=== PATIENT | female | born 1980 | race Two or more races ===

== ENCOUNTER 2018-09-13 13:30 | Emergency (ER) | payer OTHER ==
[~2018-09-13] VITALS: Ht 160 cm; Wt 62.1 kg
[2018-09-13 16:20] VITALS: BP 112/53
[2018-09-13] MEDS ORDERED: KETOROLAC TROMETH 60MG/2ML VIAL IM ONE (16:45)
[2018-09-13] MEDS ORDERED: methylPREDNISolone SOD SUCC 125 MG/2 ML VL IM ONE (16:45)
== END 2018-09-13 17:22 | disposition home or self-care (01) ==
LOC: ER 13:30 → EDBD 13:30 → ER 17:22
DX: M54.9 Dorsalgia, unspecified (principal); Z98.51 Tubal ligation status
CPT/HCPCS: 72070; 72100; 96372; 99283; J1885; J2930